=== PATIENT | male | born 1995 | race Caucasian/White ===

== ENCOUNTER 2016-10-31 05:07 | Emergency (ER) | payer OTHER | END 2016-10-31 07:20 | disposition T | LOC: EDMED 05:07 | DX: S20.212A Contusion of left front wall of thorax, initial encounter (principal); S80.211A Abrasion, right knee, initial encounter; S60.812A Abrasion of left wrist, initial encounter; Y04.0XXA Assault by unarmed brawl or fight, initial encounter; Y92.219 Unspecified school as the place of occurrence of the external cause | CPT/HCPCS: J1885 ==